=== PATIENT | female | born 1970 | race Caucasian/White ===

== ENCOUNTER 2022-01-08 16:41 | Inpatient (IN) ==
[2022-01-08] MEDS ORDERED: ONDANSETRON 4 MG/2 ML VIAL IV STA (17:12)
[2022-01-08] MEDS ORDERED: SODIUM CHLORIDE 0.9% 1,000 ML IV STA (17:12)
[2022-01-08 17:40] LABS: Alanine Aminotransferase 125 U/L (13-56); Alkaline Phosphatase 166 U/L (45-117); Aspartate Amino Transferase 132 U/L (0-37); Blood Urea Nitrogen 17 MG/DL (7-18); Calcium 10.2 MG/DL (8.5-10.1); Carbon Dioxide 19 MMOL/L (21-32); Chloride 105 MMOL/L (98-107); Glucose 91 MG/DL (74-106); Potassium 3.7 MMOL/L (3.5-5.1); Sodium 136 MMOL/L (136-145); Total Protein 9.8 G/DL (6.4-8.2)
[2022-01-08 17:43] LABS: Bilirubin,Urine Negative (Negative); Blood, Urine Negative (Negative); Glucose,Urine (UA) Negative (Negative); Ketones,Urine Negative (Negative); Nitrite,Urine Negative (Negative); Protein,Urine 30 mg/dL (Negative); Urine Appearance Clear (Clear); Urine Color Yellow (Yellow)
[2022-01-08 17:48] LABS: Hyaline Casts,Urine 3 /LPF (0-3); Mucus,Urine Few /LPF (Occasional); RBC,Urine 1 /HPF (0-4); Squamous Epithelial Cell,Urine Occasional /HPF (0-10)
[2022-01-08] MEDS ORDERED: ONDANSETRON 4 MG/2 ML VIAL IV PRN (18:22)
[2022-01-08 18:27] LABS: Barbiturates Screen,Urine Negative (Negative); Benzodiazepines Screen,Urine Negative (Negative); Cannabinoid Screen,Urine Negative (Negative); Opiate Screen,Urine Negative (Negative); Phencyclidine Screen,Urine Negative (Negative)
[2022-01-08] MEDS ORDERED: NICOTINE 21 MG/24 HR PATCH TRANSDERM PRN (18:33)
[2022-01-08] MEDS: LACTATED RINGERS 1,000 ML IV SCH (21:40)
[2022-01-08] MEDS: ENOXAPARIN 40 MG/0.4 ML SYRINGE SUBCUT SCH (22:15)
[2022-01-08 23:02] LABS: Albumin 3.2 G/DL (3.4-5.0); Bilirubin,Direct 0.12 MG/DL (0.0-0.20); Bilirubin,Indirect 0.3 MG/DL (0.0-1.0); Bilirubin,Total 0.4 MG/DL (0.20-1.00); Total Protein 7.7 G/DL (6.4-8.2)
[2022-01-08 23:58] LABS: Basophils % 0.5 % (0.0-0.8); Eosinophils # 0.1 10*3/uL (0.0-0.87); Eosinophils % 1.6 % (0.00-10.9); Hemoglobin 14.3 GM/DL (12.0-16.0); Immature Granulocytes % 0.2 %; Immature Granulocytes Absolute 0.01 #; Lymphocytes # 1.8 10*3/uL (1.4-4.0); Lymphocytes % 41.1 % (21.3-54.2); Mean Corpuscular HGB Conc 32.5 GM/DL (32-36); Mean Corpuscular Volume 92.1 FL (87-102); Mean Platelet Volume 9.4 FL (9.6-12.0); Monocytes # 0.5 10*3/uL (0.11-0.8); Monocytes % 11.1 % (1.7-12.7); Neutrophils % 45.5 % (38.7-73.9); Platelet Count 162 T/CUMM (130-400); Red Blood Count 4.78 MC/CUMM (3.8-5.5); Red Cell Distribution Width 14.5 % (9.3-17.3); White Blood Count 4.3 T/CUMM (4-12)
[2022-01-09 04:39] LABS: Basophils % 0.5 % (0.0-0.8); Eosinophils # 0.1 10*3/uL (0.0-0.87); Hematocrit 42.8 VOL% (35.7-47.0); Immature Granulocytes % 0.2 %; Immature Granulocytes Absolute 0.01 #; Lymphocytes # 1.8 10*3/uL (1.4-4.0); Lymphocytes % 45.2 % (21.3-54.2); Mean Corpuscular HGB Conc 32.7 GM/DL (32-36); Mean Corpuscular Volume 92.4 FL (87-102); Mean Platelet Volume 9.2 FL (9.6-12.0); Monocytes # 0.5 10*3/uL (0.11-0.8); Monocytes % 11.1 % (1.7-12.7); Platelet Count 160 T/CUMM (130-400); Red Blood Count 4.63 MC/CUMM (3.8-5.5); Red Cell Distribution Width 14.4 % (9.3-17.3); White Blood Count 4.1 T/CUMM (4-12)
[2022-01-09 04:49] LABS: PT Patient Result 10.9 SECS (10.5-12.0)
[2022-01-09 04:59] LABS: Bilirubin,Total 0.6 MG/DL (0.20-1.00); Calcium 9.5 MG/DL (8.5-10.1); Osmolality,Calculated 273.8 MOS/KG (273-304); Total Protein 7.4 G/DL (6.4-8.2)
[2022-01-09 05:50] LABS: Hepatitis B Core IgM Quant 0.05 Index; Hepatitis B Surface Ag Quant < 0.10 Index; Hepatitis B Surface Ag Result Non-Reactive (NonReactive); Hepatitis C Virus Ab Quant > 11.00 Index
[2022-01-09 05:55] LABS: Hepatitis C Virus Ab Result Reactive (NonReactive)
[2022-01-09] MEDS: LACTATED RINGERS 1,000 ML IV SCH ×3 (06:30→22:37)
[2022-01-09] MEDS: PANTOPRAZOLE 40 MG TABLET PO SCH (08:41)
[2022-01-09] MEDS: cefTRIAXone 1,000 MG in SODIUM CHLORIDE 0.9% 100 ML IV SCH (09:45)
[2022-01-09] MEDS: ENOXAPARIN 40 MG/0.4 ML SYRINGE SUBCUT SCH (21:39)
[2022-01-10 05:26] LABS: Basophils % 0.5 % (0.0-0.8); Eosinophils # 0.1 10*3/uL (0.0-0.87); Hematocrit 42.4 VOL% (35.7-47.0); Hemoglobin 13.7 GM/DL (12.0-16.0); Lymphocytes # 1.6 10*3/uL (1.4-4.0); Lymphocytes % 39.9 % (21.3-54.2); Mean Corpuscular HGB Conc 32.3 GM/DL (32-36); Mean Corpuscular Volume 93.2 FL (87-102); Mean Platelet Volume 9.5 FL (9.6-12.0); Monocytes # 0.4 10*3/uL (0.11-0.8); Monocytes % 10.4 % (1.7-12.7); Neutrophils % 47.2 % (38.7-73.9); Platelet Count 162 T/CUMM (130-400); Red Blood Count 4.55 MC/CUMM (3.8-5.5); Red Cell Distribution Width 14.2 % (9.3-17.3); White Blood Count 3.9 T/CUMM (4-12)
[2022-01-10 05:38] LABS: Albumin 2.8 G/DL (3.4-5.0); Bilirubin,Total 0.4 MG/DL (0.20-1.00); Calcium 9.1 MG/DL (8.5-10.1); Osmolality,Calculated 279.3 MOS/KG (273-304); Potassium 3.9 MMOL/L (3.5-5.1); Total Protein 7.1 G/DL (6.4-8.2)
[2022-01-10] MEDS: LACTATED RINGERS 1,000 ML IV SCH ×2 (06:30→17:58)
[2022-01-10 07:53] LABS: Anisocytosis Slight; Atypical Lymphocytes Few; Band Neutrophils 6 % (0-10); Eosinophils 3 % (0-10); Lymphocytes 39 % (20-55); Macrocytosis Slight; Platelet Estimate Normal; Total Cells Counted 100
[2022-01-10] MEDS: NICOTINE 21 MG/24 HR PATCH TRANSDERM SCH (10:42)
[2022-01-10] MEDS: PANTOPRAZOLE 40 MG TABLET PO SCH (10:43)
[2022-01-10] MEDS: cefTRIAXone 1,000 MG in SODIUM CHLORIDE 0.9% 100 ML IV SCH (10:50)
[2022-01-10] MEDS: ENOXAPARIN 40 MG/0.4 ML SYRINGE SUBCUT SCH (21:00)
[2022-01-11] MEDS: LACTATED RINGERS 1,000 ML IV SCH ×3 (07:19→14:08)
[2022-01-11] MEDS: PANTOPRAZOLE 40 MG TABLET PO SCH (08:36)
[2022-01-11] MEDS: NICOTINE 21 MG/24 HR PATCH TRANSDERM SCH (08:37)
[2022-01-11] MEDS: cefTRIAXone 1,000 MG in SODIUM CHLORIDE 0.9% 100 ML IV SCH ×2 (08:38→09:43)
[2022-01-11 15:55] VITALS: BP 124/89
== END 2022-01-11 16:54 | disposition home or self-care (01) | DRG 918 ==
LOC: N.ED 16:41 → N.EDINP 18:22 → SUATTDRO 18:22 → N.EDINP 20:40 → N.ICU 22:02 → N.5E 01-09 17:23
PROVIDERS: ADMIT Family Medicine; ATTEND Internal Medicine Geriatric Medicine